=== PATIENT | male | born 1975 | race Caucasian/White ===

== ENCOUNTER 2017-03-17 16:04 | Emergency (ER) | payer MEDICAID ==
[~2017-03-17] VITALS: Ht 175.3 cm; Wt 82.0 kg
[2017-03-17 16:45] VITALS: BP 124/76
[2017-03-17] MEDS ORDERED: CEFAZOLIN SODIUM 1000MG/VIAL IM ONE (18:15)
== END 2017-03-18 08:48 | disposition home or self-care (01) ==
LOC: ER 16:05
DX: L03.114 Cellulitis of left upper limb (principal); L03.113 Cellulitis of right upper limb; F90.9 Attention-deficit hyperactivity disorder, unspecified type; F10.20 Alcohol dependence, uncomplicated; F17.210 Nicotine dependence, cigarettes, uncomplicated
CPT/HCPCS: 96372; 99283; J0690

== ENCOUNTER 2017-06-27 15:58 | Emergency (ER) | payer MEDICAID ==
[~2017-06-27] VITALS: Ht 175.3 cm; Wt 75.0 kg
[2017-06-27 16:09] VITALS: BP 133/100
== END 2017-06-28 00:03 | disposition left against medical advice (07) ==
LOC: ER 21:48
DX: R10.9 Unspecified abdominal pain (principal); R53.1 Weakness; Z53.21 Procedure and treatment not carried out due to patient leaving prior to being seen by health care provider

== ENCOUNTER 2017-12-07 17:54 | Emergency (ER) | payer MEDICAID ==
[~2017-12-07] VITALS: Ht 177.8 cm; Wt 72.0 kg
[2017-12-07 19:03] VITALS: BP 126/75
== END 2017-12-07 21:30 | disposition left against medical advice (07) ==
LOC: ER 19:12
DX: R10.9 Unspecified abdominal pain (principal); Z53.21 Procedure and treatment not carried out due to patient leaving prior to being seen by health care provider

== ENCOUNTER 2018-11-05 19:05 | Emergency (ER) | payer MEDICAID ==
[~2018-11-05] VITALS: Ht 175.3 cm; Wt 77.0 kg
[2018-11-05 20:29] VITALS: BP 118/84
== END 2018-11-05 21:20 | disposition left against medical advice (07) ==
LOC: ER 19:05
DX: R10.9 Unspecified abdominal pain (principal); Z53.21 Procedure and treatment not carried out due to patient leaving prior to being seen by health care provider

== ENCOUNTER 2018-12-23 16:53 | Emergency (ER) | payer MEDICAID ==
[~2018-12-23] VITALS: Ht 175.3 cm; Wt 74.0 kg
[2018-12-23] MEDS ORDERED: BACITRACIN ZINC OINT UDPKT TOP ONE (20:30)
[2018-12-23 20:49] VITALS: BP 118/78
== END 2018-12-23 20:50 | disposition home or self-care (01) ==
LOC: ER 16:53
DX: L02.414 Cutaneous abscess of left upper limb (principal); L03.114 Cellulitis of left upper limb; B86 Scabies; R03.0 Elevated blood-pressure reading, without diagnosis of hypertension; Z72.0 Tobacco use; F11.10 Opioid abuse, uncomplicated; F10.10 Alcohol abuse, uncomplicated; Y90.9 Presence of alcohol in blood, level not specified
CPT/HCPCS: 10060; 99283

== ENCOUNTER 2019-03-21 18:42 | Emergency (ER) | payer MEDICAID ==
[~2019-03-21] VITALS: Ht 175.3 cm; Wt 80.0 kg
[2019-03-21] MEDS ORDERED: LORAZEPAM 0.5MG TABLET PO ONE (19:45)
[2019-03-21] MEDS ORDERED: DIPHENHYDRAMINE 25MG CAPSULE PO ONE (19:45)
[2019-03-21] MEDS ORDERED: TERBINAFINE HCL 250MG TABLET PO ONE (20:00)
[2019-03-21 20:39] VITALS: BP 150/96
== END 2019-03-21 20:41 | disposition home or self-care (01) ==
LOC: ER 18:42
DX: B35.4 Tinea corporis (principal); F41.9 Anxiety disorder, unspecified; R21 Rash and other nonspecific skin eruption; F17.200 Nicotine dependence, unspecified, uncomplicated; F11.10 Opioid abuse, uncomplicated
CPT/HCPCS: 99284; Q0163

== ENCOUNTER 2019-04-14 16:56 | Emergency (ER) | payer MEDICAID ==
[~2019-04-14] VITALS: Ht 175.3 cm; Wt 77.5 kg
[2019-04-14 17:00] VITALS: BP 131/74
[2019-04-14] MEDS ORDERED: ONDANSETRON HCL 4MG/2ML INJ IV STA (17:18)
[2019-04-14] MEDS ORDERED: SODIUM CHLORIDE 0.9% 1,000 ML IV ONE (17:18)
[2019-04-14] MEDS ORDERED: PERMETHRIN 5% CREAM 60GM TOP ONE (17:30)
[2019-04-14] MEDS ORDERED: LORAZEPAM 2MG/ML CPJ IV ONE (17:30)
== END 2019-04-14 18:45 | disposition left against medical advice (07) ==
LOC: ER 16:56
DX: B86 Scabies (principal); E86.0 Dehydration; F10.239 Alcohol dependence with withdrawal, unspecified; R53.1 Weakness; F12.10 Cannabis abuse, uncomplicated; F17.210 Nicotine dependence, cigarettes, uncomplicated; Y90.9 Presence of alcohol in blood, level not specified; Z59.0 Homelessness; Z71.6 Tobacco abuse counseling
CPT/HCPCS: 71045; 93005; 99284; 99406; J7030

== ENCOUNTER 2019-08-07 15:17 | Emergency (ER) | payer MEDICAID ==
[~2019-08-07] VITALS: Ht 175.3 cm; Wt 74.0 kg
[2019-08-07 17:47] VITALS: BP 136/90
== END 2019-08-07 19:00 | disposition left against medical advice (07) ==
LOC: ER 15:17
DX: Z53.21 Procedure and treatment not carried out due to patient leaving prior to being seen by health care provider (principal)

== ENCOUNTER 2019-08-22 12:17 | Emergency (ER) | payer MEDICAID ==
[~2019-08-22] VITALS: Ht 175.3 cm; Wt 76.0 kg
[2019-08-22] MEDS ORDERED: SODIUM CHLORIDE 0.9% 1,000 ML IV ONE (14:51)
[2019-08-22] MEDS ORDERED: DIPHENHYDRAMINE 50MG/ML VIAL IV ONE (15:00)
[2019-08-22] MEDS ORDERED: IBUPROFEN 400MG TABLET PO ONE (15:00)
[2019-08-22] MEDS ORDERED: BACITRACIN ZINC OINT UDPKT TOP ONE (15:00)
[2019-08-22] MEDS ORDERED: TETANUS, DIPHTHERIA, PERTUSSIS VAC/PF 0.5ML (>7YR OLD) IM ONE (15:00)
[2019-08-22] MEDS ORDERED: BACITRACIN 15GM TUBE TOP NR (15:45)
[2019-08-22 16:00] LABS: CHLORIDE 104 mEq/L (98-107)
[2019-08-22 16:06] LABS: BASOPHILS % 0.9 % (0.0-2.0); EOSINOPHILS % 1.2 % (0.0-5.0); HEMATOCRIT. 40.2 % (42.0-52.0); HEMOGLOBIN. 13.9 g/dL (14.0-18.0); LYMPHOCYTES % 45.7 % (20.0-50.0); MEAN CORPUSCULAR HEMOGLOBIN 35.2 pg (28.0-32.0); MEAN PLATELET VOLUME 7.9 fl (7.4-10.4); MONOCYTES % 10.2 % (2.0-8.0); PLATELET 198 x1000/uL (130-400); RED BLOOD CELL COUNT 3.94 mill/uL (4.7-6.1); RED CELL DISTRIBUTION WIDTH 12.4 % (11.6-14.6)
[2019-08-22 16:08] LABS: PARTIAL THROMBOPLASTIN TIME 24.2 sec (23.4-31.0); PROTHROMBIN TIME 10.7 sec (9.6-11.0)
[2019-08-22 17:05] VITALS: BP 134/69
[2019-08-22 17:07] LABS: PLATELET ESTIMATE NORMAL
== END 2019-08-22 17:10 | disposition left against medical advice (07) ==
LOC: ER 13:51
DX: R23.4 Changes in skin texture (principal); E87.6 Hypokalemia; F17.200 Nicotine dependence, unspecified, uncomplicated; F11.10 Opioid abuse, uncomplicated; Z88.5 Allergy status to narcotic agent
CPT/HCPCS: 36415; 71045; 80053; 85025; 85610; 85730; 90471; 90715; 93005; 99284; J1200; J7030

== ENCOUNTER 2019-08-29 23:42 | Emergency (ER) | payer MEDICAID ==
[~2019-08-29] VITALS: Ht 172.7 cm; Wt 79.0 kg
[2019-08-30 00:49] LABS: BASOPHILS % 0.6 % (0.0-2.0); HEMATOCRIT. 37.6 % (42.0-52.0); LYMPHOCYTES % 42.2 % (20.0-50.0); MEAN PLATELET VOLUME 8.2 fl (7.4-10.4); MONOCYTES % 12.3 % (2.0-8.0); NEUTROPHILS % 42.9 % (40.0-76.0); PLATELET 156 x1000/uL (130-400); RED BLOOD CELL COUNT 3.73 mill/uL (4.7-6.1); RED CELL DISTRIBUTION WIDTH 12.4 % (11.6-14.6)
[2019-08-30 00:54] LABS: CHLORIDE 103 mEq/L (98-107)
[2019-08-30 01:12] LABS: ETHANOL BLOOD < 10 mg/dL
[2019-08-30 01:20] LABS: CLARITY URINE CLEAR (CLEAR); COLOR URINE YELLOW (YELLOW); KETONES URINE NEGATIVE (NEGATIVE); LEUKOCYTE ESTERASE URINE NEGATIVE (NEGATIVE); NITRITE URINE NEGATIVE (NEGATIVE); OCCULT BLOOD URINE 1+ (NEGATIVE); PH URINE 7.5 (4.5-8.0); PROTEIN URINE NEGATIVE (NEGATIVE); SPECIFIC GRAVITY URINE 1.008 (1.005-1.030)
[2019-08-30 01:37] LABS: *AMPHETAMINES SCREEN URINE NEGATIVE (NEGATIVE); *BARBITURATES SCREEN URINE NEGATIVE (NEGATIVE); *BENZODIAZEPINES SCREEN URINE NEGATIVE (NEGATIVE); *COCAINE SCREEN URINE NEGATIVE (NEGATIVE); CANNABINOID URINE SCREEN PRESUMTIVE POSITIVE (NEGATIVE); OPIATES URINE SCREEN NEGATIVE (NEGATIVE); PHENCYCLIDINE URINE SCREEN NEGATIVE (NEGATIVE)
[2019-08-30 01:38] LABS: METHADONE URINE SCREEN PRESUMTIVE POSITIVE (NEGATIVE)
[2019-08-30 06:00] VITALS: BP 122/84
[2019-08-30] MEDS ORDERED: CLONAZEPAM 1MG TABLET PO ONE (06:15)
== END 2019-08-30 06:55 | disposition home or self-care (01) ==
LOC: ER 23:42
DX: R42 Dizziness and giddiness (principal); E87.6 Hypokalemia; F11.10 Opioid abuse, uncomplicated; F15.10 Other stimulant abuse, uncomplicated; F12.90 Cannabis use, unspecified, uncomplicated; Z59.0 Homelessness
CPT/HCPCS: 36415; 70450; 80053; 80305; 80307; 80320; 80329; 81003; 85025; 99284; Z7610; G0480

== ENCOUNTER 2019-09-19 18:29 | Emergency (ER) | payer MEDICAID ==
[~2019-09-19] VITALS: Ht 175.3 cm; Wt 79.0 kg
[2019-09-19 19:13] VITALS: BP 132/78
== END 2019-09-19 20:42 | disposition left against medical advice (07) ==
LOC: ER 18:29
DX: Z53.21 Procedure and treatment not carried out due to patient leaving prior to being seen by health care provider (principal)

== ENCOUNTER 2019-10-16 16:39 | Emergency (ER) | payer MEDICAID ==
[~2019-10-16] VITALS: Ht 175.3 cm; Wt 87.0 kg
[2019-10-16] MEDS ORDERED: KETOROLAC 30MG/ML VIAL IV STA (19:02)
[2019-10-16] MEDS ORDERED: SODIUM CHLORIDE 0.9% 1,000 ML IV ONE (19:02)
[2019-10-16] MEDS ORDERED: VANCOMYCIN 1 G PREMIX 200 ML IV SCH (19:15)
[2019-10-16] MEDS ORDERED: CLINDAMYCIN 600 MG in DEXTROSE 5% WATER 50 ML IV ONE (19:15)
[2019-10-16 20:56] LABS: HEMATOCRIT. 35.2 % (42.0-52.0); HEMOGLOBIN. 12.1 g/dL (14.0-18.0); MEAN CORPUSCULAR HEMOGLOBIN 34.1 pg (28.0-32.0); MEAN CORPUSCULAR VOLUME 99.5 fL (80.0-94.0); MEAN PLATELET VOLUME 6.7 fl (7.4-10.4); PLATELET 317 x1000/uL (130-400); RED BLOOD CELL COUNT 3.53 mill/uL (4.7-6.1); RED CELL DISTRIBUTION WIDTH 12.3 % (11.6-14.6)
[2019-10-16 20:57] LABS: CHLORIDE 102 mEq/L (98-107)
[2019-10-16 21:13] LABS: PLATELET ESTIMATE NORMAL
[2019-10-16 23:08] LABS: CLARITY URINE CLEAR (CLEAR); COLOR URINE YELLOW (YELLOW); KETONES URINE NEGATIVE (NEGATIVE); LEUKOCYTE ESTERASE URINE 3+ (NEGATIVE); NITRITE URINE NEGATIVE (NEGATIVE); OCCULT BLOOD URINE 3+ (NEGATIVE); PH URINE 6.5 (4.5-8.0); PROTEIN URINE TRACE (NEGATIVE); SPECIFIC GRAVITY URINE 1.014 (1.005-1.030)
[2019-10-16 23:34] LABS: *AMPHETAMINES SCREEN URINE PRESUMTIVE POSITIVE (NEGATIVE); *BARBITURATES SCREEN URINE NEGATIVE (NEGATIVE)
[2019-10-16 23:35] LABS: *BENZODIAZEPINES SCREEN URINE PRESUMTIVE POSITIVE (NEGATIVE); *COCAINE SCREEN URINE NEGATIVE (NEGATIVE); CANNABINOID URINE SCREEN PRESUMTIVE POSITIVE (NEGATIVE); METHADONE URINE SCREEN PRESUMTIVE POSITIVE (NEGATIVE); OPIATES URINE SCREEN PRESUMTIVE POSITIVE (NEGATIVE); PHENCYCLIDINE URINE SCREEN NEGATIVE (NEGATIVE)
[2019-10-16] MEDS ORDERED: CLINDAMYCIN 600MG PREMIX 50 ML IV ONE (23:45)
[2019-10-17] MEDS ORDERED: LORAZEPAM 2MG/ML CPJ IV ONE (01:30)
[2019-10-17 07:00] VITALS: BP 101/86
== END 2019-10-17 07:21 | disposition left against medical advice (07) ==
LOC: ER 16:39 → EDBEDREQ 22:25 → EDBEDREQTM 22:25 → ER 10-17 07:21 → ENRESERV 10-17 07:22 → CANBEDREQ 10-17 16:38
DX: L03.114 Cellulitis of left upper limb (principal); L03.113 Cellulitis of right upper limb; F17.200 Nicotine dependence, unspecified, uncomplicated; F15.10 Other stimulant abuse, uncomplicated
CPT/HCPCS: 36415; 80053; 80305; 81003; 85025; 87040; 87070; 87077; 87086; 87205; 96365; 96367; 96375; 99283; J1885; J2060; J3370; J3490; J7030; Z7610; J7060

== ENCOUNTER 2020-04-02 17:40 | Emergency (ER) | payer MEDICAID ==
[~2020-04-02] VITALS: Ht 175.3 cm; Wt 75.0 kg
[2020-04-02] MEDS ORDERED: NAPROXEN 250MG TABLET PO ONE (18:15)
[2020-04-02 20:14] VITALS: BP 135/72
== END 2020-04-02 20:15 | disposition home or self-care (01) ==
LOC: ER 17:40
DX: M25.511 Pain in right shoulder (principal); K40.90 Unilateral inguinal hernia, without obstruction or gangrene, not specified as recurrent; F15.10 Other stimulant abuse, uncomplicated
CPT/HCPCS: 73030; 73060; 99284

== ENCOUNTER 2020-04-22 15:28 | Emergency (ER) | payer MEDICAID ==
[~2020-04-22] VITALS: Ht 172.7 cm; Wt 80.0 kg
[2020-04-22] MEDS ORDERED: IBUPROFEN 600MG TABLET PO ONE (18:30)
[2020-04-22 18:49] VITALS: BP 112/76
== END 2020-04-22 18:55 | disposition home or self-care (01) ==
LOC: ER 15:28
DX: S60.222A Contusion of left hand, initial encounter (principal); V18.0XXA Pedal cycle driver injured in noncollision transport accident in nontraffic accident, initial encounter; Y93.55 Activity, bike riding; Y92.410 Unspecified street and highway as the place of occurrence of the external cause; F15.10 Other stimulant abuse, uncomplicated; F11.10 Opioid abuse, uncomplicated
CPT/HCPCS: 73130; 99283

== ENCOUNTER 2020-05-03 13:01 | Emergency (ER) | payer MEDICAID ==
[~2020-05-03] VITALS: Ht 172.7 cm; Wt 79.0 kg
[2020-05-03] MEDS ORDERED: ONDANSETRON HCL 4MG/2ML INJ IV ONE (13:45)
[2020-05-03] MEDS ORDERED: FOLIC ACID 1 MG, THIAMINE HCL 100 MG, MVI, ADULT NO.1 10 ML in DEXTROSE 5% WATER 1,000 ML IV ONE ×4 (13:45)
[2020-05-03 13:58] LABS: BASOPHILS % 1.5 % (0.0-2.0); EOSINOPHILS % 2.3 % (0.0-5.0); HEMATOCRIT. 37.9 % (42.0-52.0); HEMOGLOBIN. 12.9 g/dL (14.0-18.0); LYMPHOCYTES % 42.9 % (20.0-50.0); MEAN CORPUSCULAR HEMOGLOBIN 32.9 pg (28.0-32.0); MEAN CORPUSCULAR VOLUME 96.4 fL (80.0-94.0); MEAN PLATELET VOLUME 6.8 fl (7.4-10.4); MONOCYTES % 10.8 % (2.0-8.0); NEUTROPHILS % 42.5 % (40.0-76.0); PLATELET 314 x1000/uL (130-400); RED BLOOD CELL COUNT 3.93 mill/uL (4.7-6.1); RED CELL DISTRIBUTION WIDTH 13.4 % (11.6-14.6)
[2020-05-03 14:03] LABS: CHLORIDE 102 mEq/L (98-107)
[2020-05-03 14:06] LABS: ETHANOL BLOOD 76 mg/dL
[2020-05-03] MEDS ORDERED: IOHEXOL-300 100 ML BOTTLE ONE (15:36)
[2020-05-03 16:42] VITALS: BP 124/75
== END 2020-05-03 18:53 | disposition home or self-care (01) ==
LOC: ER 13:01
DX: T51.0X1A Toxic effect of ethanol, accidental (unintentional), initial encounter (principal); K40.91 Unilateral inguinal hernia, without obstruction or gangrene, recurrent; G92 Toxic encephalopathy; F10.129 Alcohol abuse with intoxication, unspecified; Y90.3 Blood alcohol level of 60-79 mg/100 ml; S62.522A Displaced fracture of distal phalanx of left thumb, initial encounter for closed fracture; E86.0 Dehydration; F15.10 Other stimulant abuse, uncomplicated; F11.10 Opioid abuse, uncomplicated; X58.XXXA Exposure to other specified factors, initial encounter; Y93.89 Activity, other specified; Y92.480 Sidewalk as the place of occurrence of the external cause; Z59.0 Homelessness
CPT/HCPCS: 36415; 73130; 74177; 80053; 80307; 80320; 80329; 85025; 96365; 96375; 99285; J2405; J3411; J3490; J7070; Q9967; G0480

== ENCOUNTER 2020-05-10 20:16 | Emergency (ER) | payer MEDICAID ==
[~2020-05-10] VITALS: Ht 175.3 cm; Wt 75.0 kg
[2020-05-10 20:28] VITALS: BP 137/105
== END 2020-05-11 06:55 | disposition home or self-care (01) ==
LOC: ER 20:16
DX: S62.92XA Unspecified fracture of left hand, initial encounter for closed fracture (principal); X58.XXXA Exposure to other specified factors, initial encounter; Y93.89 Activity, other specified; Y92.89 Other specified places as the place of occurrence of the external cause; Y99.8 Other external cause status; F10.229 Alcohol dependence with intoxication, unspecified; Y90.0 Blood alcohol level of less than 20 mg/100 ml
CPT/HCPCS: 29125; 99283

== ENCOUNTER 2020-06-04 11:32 | Emergency (ER) | payer MEDICAID ==
[~2020-06-04] VITALS: Ht 175.3 cm; Wt 75.0 kg
[2020-06-04 12:24] VITALS: BP 119/71
== END 2020-06-04 14:15 | disposition left against medical advice (07) ==
LOC: ER 11:54
DX: Z59.0 Homelessness (principal); Z53.21 Procedure and treatment not carried out due to patient leaving prior to being seen by health care provider

== ENCOUNTER 2020-06-16 14:59 | Emergency (ER) | payer MEDICAID ==
[~2020-06-16] VITALS: Ht 180.3 cm; Wt 87.0 kg
[2020-06-16] MEDS ORDERED: AMOXICILLIN/POTASSIUM CLAVULANATE 875/125MG TAB PO ONE (16:15)
[2020-06-16] MEDS ORDERED: IBUPROFEN 600MG TABLET PO ONE (16:15)
[2020-06-16 16:23] LABS: BASOPHILS % 0.4 % (0.0-2.0); EOSINOPHILS % 1.8 % (0.0-5.0); HEMATOCRIT. 40.1 % (42.0-52.0); HEMOGLOBIN. 12.9 g/dL (14.0-18.0); LYMPHOCYTES % 51.4 % (20.0-50.0); MEAN CORPUSCULAR HEMOGLOBIN 30.4 pg (28.0-32.0); MEAN CORPUSCULAR VOLUME 94.5 fL (80.0-94.0); MONOCYTES % 8.5 % (2.0-8.0); NEUTROPHILS % 37.9 % (40.0-76.0); PLATELET 275 x1000/uL (130-400); RED BLOOD CELL COUNT 4.24 mill/uL (4.7-6.1); RED CELL DISTRIBUTION WIDTH 15.3 % (11.6-14.6)
[2020-06-16 16:27] LABS: CHLORIDE 107 mEq/L (98-107)
[2020-06-16 16:50] LABS: ETHANOL BLOOD 372 mg/dL
[2020-06-16 19:08] LABS: *AMPHETAMINES SCREEN URINE PRESUMTIVE POSITIVE (NEGATIVE); *BARBITURATES SCREEN URINE NEGATIVE (NEGATIVE); *BENZODIAZEPINES SCREEN URINE PRESUMTIVE POSITIVE (NEGATIVE); *COCAINE SCREEN URINE NEGATIVE (NEGATIVE); CANNABINOID URINE SCREEN PRESUMTIVE POSITIVE (NEGATIVE); METHADONE URINE SCREEN PRESUMTIVE POSITIVE (NEGATIVE); OPIATES URINE SCREEN NEGATIVE (NEGATIVE); PHENCYCLIDINE URINE SCREEN NEGATIVE (NEGATIVE)
[2020-06-16 22:12] VITALS: BP 131/78
== END 2020-06-16 22:16 | disposition home or self-care (01) ==
LOC: ER 14:59
DX: T81.89XA Other complications of procedures, not elsewhere classified, initial encounter (principal); T43.621A Poisoning by amphetamines, accidental (unintentional), initial encounter; F10.229 Alcohol dependence with intoxication, unspecified; Y90.8 Blood alcohol level of 240 mg/100 ml or more; Y83.8 Other surgical procedures as the cause of abnormal reaction of the patient, or of later complication, without mention of misadventure at the time of the procedure; Y92.018 Other place in single-family (private) house as the place of occurrence of the external cause
CPT/HCPCS: 36415; 80053; 80305; 80320; 85025; 93005; 99285; G0480

== ENCOUNTER 2021-02-13 13:14 | Emergency (ER) | payer MEDICAID, OTHER ==
[~2021-02-13] VITALS: Ht 175.3 cm; Wt 72.0 kg
[2021-02-13 13:25] VITALS: BP 139/96
[2021-02-13] MEDS ORDERED: ACETAMINOPHEN 325MG TABLET PO ONE (13:45)
== END 2021-02-13 15:35 | disposition home or self-care (01) ==
LOC: ER 13:53
DX: S63.682A Other sprain of left thumb, initial encounter (principal); F17.290 Nicotine dependence, other tobacco product, uncomplicated; W18.39XA Other fall on same level, initial encounter; Y93.89 Activity, other specified; Y92.89 Other specified places as the place of occurrence of the external cause; Y99.8 Other external cause status; Z98.890 Other specified postprocedural states
CPT/HCPCS: 29125; 73130; 99283

== ENCOUNTER 2022-09-04 05:35 | Emergency (ER) | payer MEDICAID, OTHER ==
[~2022-09-04] VITALS: Ht 175.3 cm; Wt 68.0 kg
[2022-09-04 05:38] VITALS: BP 126/71
== END 2022-09-04 06:02 | disposition home or self-care (01) ==
LOC: ER 05:35
DX: Z02.89 Encounter for other administrative examinations (principal); R10.9 Unspecified abdominal pain; R11.2 Nausea with vomiting, unspecified; F11.23 Opioid dependence with withdrawal; F10.139 Alcohol abuse with withdrawal, unspecified; Y90.9 Presence of alcohol in blood, level not specified
CPT/HCPCS: 99283